=== PATIENT | male | born 1985 | race Caucasian/White ===

== ENCOUNTER 2020-08-01 10:35 | Emergency (ER) | payer OTHER ==
[~2020-08-01 10:35] MED LIST: ADIPEX-P37.5 M1 PO; NORCO 7.5-3251 EACH PO; OMEPRAZOLE20 MG PO; PERCOCET 10-321 EACH PO
[2020-08-01 12:11] LABS: HEMOGLOBIN 16.2 gm/dl (14.0-17.5); RED BLOOD COUNT 5.28 M/UL (4.20-5.50); WHITE BLOOD COUNT 7.6 K/UL (4.5-11.0)
[2020-08-01 12:43] LABS: BUN/CREATININE RATIO 19 (0-10)
[2020-08-01] MEDS ORDERED: PROTONIX 40 MG40 M1 PO (14:13)
[2020-08-01] MEDS ORDERED: ZOFRAN ODT 4 MG4 MG PO (14:13)
== END 2020-08-01 14:20 | disposition home or self-care (01) ==
LOC: ER1 10:35
DX: R11.2 Nausea with vomiting, unspecified (principal); R10.9 Unspecified abdominal pain; K62.5 Hemorrhage of anus and rectum; Z90.49 Acquired absence of other specified parts of digestive tract; Z88.0 Allergy status to penicillin
CPT/HCPCS: 80053; 82272; 83605; 83690; 85025; 96374; 96375; 99284; C9113; J2405

== ENCOUNTER 2020-10-23 10:11 | Emergency (ER) | payer OTHER ==
[~2020-10-23 10:11] MED LIST changes: +PROTONIX 40 MG40 M1 PO; +ZOFRAN ODT 4 MG4 MG PO
[2020-10-23] MEDS ORDERED: ERYTHROMYCIN O3.5 GM OU (11:17)
== END 2020-10-23 12:25 | disposition home or self-care (01) ==
LOC: ER1 10:11
DX: H10.9 Unspecified conjunctivitis (principal); Z88.0 Allergy status to penicillin
CPT/HCPCS: 99283